=== PATIENT | male | born 1980 | race Two or more races ===

== ENCOUNTER 2021-03-05 15:00 | Emergency (ER) | payer OTHER ==
[~2021-03-05] VITALS: Ht 167.6 cm; Wt 88.0 kg
[2021-03-05 15:16] VITALS: BP 122/61
[2021-03-05] MEDS: CYCLOBENZAPRINE 10 MG TABLET. PO ONE (15:44)
[2021-03-05] MEDS: NAPROXEN 500 MG TABLET PO STA (15:44)
[2021-03-05] MEDS: predniSONE 10 MG TABLET PO ONE (15:44)
[2021-03-05] MEDS: HYDROcodone/APAP 5/325MG 1 TAB TABLET PO ONE (15:44)
--- NOTE | 2021-03-05 16:04 | RAD ---
INDICATION: Reason: back pain.pt having rt sided pain after lifting heavy glass. / Spl. Instructions: / History: COMPARISON: None. IMPRESSION: Lumbar spine: 3 views obtained. Mild scoliotic curvature. There is no evidence of mild degenerative c hanges with early osteophyte formation at the vertebral body endplates as well as facet hypertrophy. No evidence of dislocation. A definite acute fracture line is not seen. Electronically signed by: Jerel Eric MD (03/05/2021 4:01 PM) [id number]
[2021-03-05] MEDS ORDERED: GABA300C18 PO (16:15)
[2021-03-05] MEDS ORDERED: CYCL10TA2 PO (16:15)
[2021-03-05] MEDS ORDERED: METH4TAB2 PO (16:15)
--- NOTE | 2021-03-05 16:15 | PHYS DOC ---
Past Medical History Past Medical History: No Pertinent History (PEÑA ABDALLA Berenice YARN DYER) Past Surgical History: No Surgical History (PEÑA ABDALLA Berenice YARN DYER) Smoking Status: Never Smoker Alcohol Use: None Drug Use: None (PEÑA ABDALLA YARN DYER) General Adult EDM: Chief Complaint: LOWER BACK PAIN OR INJURY HPI: HPI: Patient is a 40 year old male with no significant medical history who presents to the ED today complaining of moderate right low back pain radiating to the right lower extremity and right groin, symptoms began yesterday after lifting heavy glass at work. Patient denies any loss of bowel/bladder function. Denies any numbness or tingling to bilateral lower extremities. Patient states symptoms are worse on sitting and slightly better on standing (PEÑA ABDALLA YARN DYER) Review of Systems: Review of Systems: Constitutional: Denies fever or chills. [] GI: Denies abdominal pain, nausea, vomiting, bloody stools or diarrhea. [] : Denies dysuria. [] Musculoskeletal: Reports right low back pain radiating to the right groin and right lower extremity Integument: Denies rash. [] Neurologic: Denies headache, focal weakness or sensory changes. [] Psychiatric: Denies depression or anxiety. [] (PEÑA ABDALLA Berenice YARN DYER) Heart Score: C/O Chest Pain: N/A Risk Factors: Risk Factors: DM, Current or recent (<one month) smoker, HTN, HLP, family history of CAD, obesity. Risk Scores: Score 0 - 3: 2.5% MACE over next 6 weeks - Discharge Home Score 4 - 6: 20.3% MACE over next 6 weeks - Admit for Clinical Observation Score 7 - 10: 72.7% MACE over next 6 weeks - Early Invasive Strategies (DIMAAshleyPEÑA Berenice YARN DYER) Current Medications: Current Medications Medications (Trade) Dose Ordered Sig/Erick Start Time Stop Time Status Last Admin Dose Admin Acetaminophen/ Hydrocodone Bitart (Lortab 5/325) 2 tab 1X ONCE 03/05/21 15:30 03/05/21 15:31 DC 03/05/21 15:44 2 TAB Cyclobenzaprine HCl (Flexeril) 10 mg 1X ONCE 03/05/21 15:30 03/05/21 15:31 DC 03/05/21 15:44 10 MG Naproxen (Naprosyn) 500 mg 1X STAT 03/05/21 15:27 03/05/21 15:30 DC 03/05/21 15:44 500 MG Prednisone (Prednisone) 50 mg 1X ONCE 03/05/21 15:30 03/05/21 15:31 DC 03/05/21 15:44 50 MG (LIANNEPEÑA Berenice YARN DYER) Allergies: Allergies: Allergies Coded Allergies Type Severity Reaction Last Updated Verified No Known Drug Allergies 02/03/14 No (PEÑA ABDALLA YARN DYER) Physical Exam: PE: Constitutional: Well developed, well nourished, no acute distress, non-toxic appearance. [] Abdomen: Bowel sounds normal, soft, no tenderness, no masses, no pulsatile masses. [] Skin: Warm, dry, no erythema, no rash. [] Back: No tenderness, no CVA tenderness. [] Extremities: Moderate tenderness on palpation of the right SI joint, no midline lumbar spine tenderness, no cyanosis, no clubbing, ROM intact, no edema. [] Neurologic: Alert and oriented X 3, normal motor function, normal sensory funct ion, no focal deficits noted. [] Psychologic: Affect normal, judgement normal, mood normal. [] (PEÑA ABDALLA YARN DYER) Current Patient Data: Vital Signs: Vital Signs Date Time Temp Pulse Resp B/P (MAP) Pulse Ox O2 Delivery O2 Flow Rate FiO2 03/05/21 15:44 18 99 03/05/21 15:16 97.8 88 122/61 (81) Room Air 97.8 (PEÑA ABDALLA YARN DYER) EKG: EKG: [] (PEÑA ABDALLA YARN DYER) Radiology/Procedures: Radiology/Procedures: []PROCEDURE: LUMBAR SPINE 2-3V INDICATION: Reason: back pain.pt having rt sided pain after lifting heavy glass. / Spl. Instructions: / History: COMPARISON: None. IMPRESSION: Lumbar spine: 3 views obtained. Mild scoliotic curvature. There is no evidence of mild degenerative changes with early osteophyte formation at the vertebral body endplates as well as facet hypertrophy. No evidence of dislocation. A definite acute fracture line is not seen. Electronically signed by: Phi Eric MD (03/05/2021 4:01 PM) [id number] DICTATED and SIGNED BY: PHI ERIC MD DATE: 03/05/21 [id number] (PEÑA ABDALLA APRN) Course & Med Decision Making: Course & Med Decision Making Pertinent Labs and Imaging studies reviewed. (See chart for details) This is a 40-year-old male patient presenting to the ED today with low back pain that began yesterday after lifting heavy glass. No cauda equina syndrome symptoms. Lumbar spine x-rays interpreted by radiologist are negative for any acute findings, discharged with Medrol Dosepak, cyclobenzaprine, diclofenac and gabapentin. Follow-up with PCP next week (PEÑA ABDALLA APRN) Dragon Disclaimer: Dragon Disclaimer: This electronic medical record was generated, in whole or in part, using a voice recognition dictation system. (PEÑA ABDALLA APRN) Departure Departure Impression: Primary Impression: Acute lumbosacral myofascial strain Qualified Codes: S39.012A - Strain of muscle, fascia and tendon of lower back, initial encounter Disposition: HOME / SELF CARE / HOMELESS Condition: STABLE Referrals: NO PCP (PCP) follow up with your doctor in 1 week Patient Instructions: Lumbosacral Strain Additional Instructions: You were seen for lumbosacral strain. Apply warm compress to your back/use a heating pad. Try to get up and move as much as you can. Take the prescribed medications as ordered. Come back to the ED at any point symptoms worsen Scripts Gabapentin (GABAPENTIN ) 300 Mg Capsule 300 MG PO TID for NEUROGENIC PAIN, #30 CAP Prov: PEÑA ABDALLA APRN 03/05/21 Methylprednisolone (MEDROL) 4 Mg Tab.ds.pk 1 PKG PO UD, #1 PKG Prov: PEÑA ABDALLA APRN 03/05/21 Cyclobenzaprine Hcl (CYCLOBENZAPRINE HCL) 10 Mg Tablet 1 TAB PO TID, #30 TAB Prov: PEÑA ABDALLA APRN 03/05/21 Attending Signature Attending Signature I have participated in the care of this patient and I have reviewed and agree with all pertinent clinical information above including history, exam, and recommendations. (DEMETRIO DIAZ DO) PEÑA ABDALLA APRN Mar 05, 2021 16:15 DEMETRIO DIAZ DO Mar 05, 2021 19:25
== END 2021-03-05 16:23 | disposition home or self-care (01) ==
LOC: ER 15:00
DX: S39.012A Strain of muscle, fascia and tendon of lower back, initial encounter (principal); R10.31 Right lower quadrant pain; X50.9XXA Other and unspecified overexertion or strenuous movements or postures, initial encounter; Y93.89 Activity, other specified; Y92.89 Other specified places as the place of occurrence of the external cause; Y99.8 Other external cause status
CPT/HCPCS: 72100; 99284; J7512